=== PATIENT | female | born 1955 | race Caucasian/White ===

== ENCOUNTER 2018-08-08 20:59 | Emergency (ER) | payer MEDICAID ==
[~2018-08-08] VITALS: Ht 165.1 cm; Wt 72.6 kg
[2018-08-08 21:05] VITALS: BP_SYST 138
[2018-08-08] MEDS ORDERED: NEU100 PO (21:13)
[2018-08-08] MEDS ORDERED: LEVO75TA7 PO (21:13)
[2018-08-08] MEDS ORDERED: methylPREDNISolone SOD SUCC/PF 62.5 MG/ML VIAL IM ONE (22:45)
[2018-08-08] MEDS ORDERED: IPRATROPIUM/ALBUTEROL SULFATE 3 ML AMPUL.NEB (DUONEB) INH ONE (22:45)
[2018-08-09 00:15] VITALS: BP_SYST 140
== END 2018-08-09 00:20 | disposition home or self-care (01) ==
LOC: SED 20:59
DX: J44.1 Chronic obstructive pulmonary disease with (acute) exacerbation (principal); Z79.899 Other long term (current) drug therapy
CPT/HCPCS: 94640; 96372; 99283; J2930; J7620

== ENCOUNTER 2023-04-07 19:25 | Emergency (ER) | payer BC, MEDICAID ==
[~2023-04-07] VITALS: Ht 165.1 cm; Wt 79.4 kg
[~2023-04-07 19:25] MED LIST: LEVO75TA7 PO; NEU100 PO
[2023-04-07 19:28] VITALS: BP_SYST 141; PULSE 91; RESP 19; TEMP 97; O2SAT 96
[2023-04-07] MEDS ORDERED: AZIT500T3 PO (20:50)
[2023-04-07] MEDS ORDERED: METH-776 PO (20:50)
== END 2023-04-07 21:04 | disposition home or self-care (01) ==
LOC: SED 19:25
DX: J44.1 Chronic obstructive pulmonary disease with (acute) exacerbation (principal); R06.02 Shortness of breath; R05.9 Cough, unspecified; F17.200 Nicotine dependence, unspecified, uncomplicated; Z79.899 Other long term (current) drug therapy
CPT/HCPCS: 99283